=== PATIENT | female | born 1990 | race Asian ===

== ENCOUNTER → 2016-09-18 | Outpatient (CLI) | payer SELFPAY | LOC: COL.RAD 10:56 | DX: R31.9 Hematuria, unspecified (principal) | CPT/HCPCS: Q9967 ==

== ENCOUNTER 2019-04-02 21:29 | Inpatient (IN) | payer BC ==
[~2019-04-02] VITALS: Ht 157.5 cm; Wt 83.2 kg
--- NOTE | 2019-04-02 22:00 | NUR ---
2200 G1L0 40.3 WEEK GEST TO LR6 WITH C/O SROM AT 2100 TONIGHT WITH CL FLUID. EFM . IRREGULAR MILD CONTRACTIONS STATES BY PT. SVE /-2 WITH CLEAR FLUID NOTED AND POSITIVE AMNIOTRACE. ADM ASSESSMENT COMPLETED.
[2019-04-02] MEDS ORDERED: GLUCOPHAGE500 MG/TAB PO (22:08)
[2019-04-02] MEDS ORDERED: PREDNISONE 5MG5 MG PO (22:09)
[2019-04-02] MEDS ORDERED: PRENATA1 CTB PO (22:09)
[2019-04-02 22:11] VITALS: BP 134/89; PULSE 108; TEMP 97.6
[2019-04-02] MEDS ORDERED: VISTARIL 2525 MG/CAP PO (22:11)
[2019-04-02 22:30] VITALS: BP 120/70; PULSE 117
[2019-04-02 23:30] VITALS: BP 114/68; PULSE 95
--- NOTE | 2019-04-02 23:30 | NUR ---
2330 IV STARTED IN LEFT FOREARM 2235 PITOCIN INDUCTION STARTED PER PROTOCOL
[2019-04-02 23:45] VITALS: BP 128/89; PULSE 118
[2019-04-02 23:55] LABS: BASO % 0.3 % (0.0-2.0); EOS # 0.4 (0.0-0.7); EOS % 3.1 % (0-4.0); GRAN # 7.3 (1.4-6.5); GRAN % 64.9 % (42.2-75.2); HEMATOCRIT 37.6 % (37.0-47.0); HEMOGLOBIN 12.9 g/dl (12.5-16.0); LYMPH # 2.5 (1.2-3.4); LYMPH % 22.7 % (20.0-51.0); MEAN CELL VOLUME 82 fl (80.0-100.0); MEAN CORPUSCULAR HEMOGLOBIN 28 pg (27.0-31.0); MEAN CORPUSCULAR HGB CONC 34 g/dl (33.0-37.0); MONO # 0.9 (0.1-0.6); PLATELET COUNT 250 K/mm3 (130-400); RED BLOOD COUNT 4.58 M/mm3 (4.10-5.30); REDCELL DISTRIBUTION WIDTH-CV 13.7 % (11.5-14.5)
[2019-04-03] VITALS (68 sets, daily range): BP systolic 87–1221; BP diastolic 44–98; PULSE 86–138; TEMP 97.4–99.2
--- NOTE | 2019-04-03 02:00 | NUR ---
0200 REQUEST EPIDURAL. BOOT TURNER NOTIFIED
--- NOTE | 2019-04-03 02:35 | NUR ---
0235 SITTING ON SIDE OF BED FOR EPID PLACEMENT. FISH ROD MAKER HERE. SEE ANESTH RECORDS FOR MORE INFO. UNABLE TO TRACR FHT'S WHILE SITTING UP FOR PROCEDURE
--- NOTE | 2019-04-03 03:00 | NUR ---
0300 C/O OF A LOT OF BLADDER DISCOMFORT. MUÑIZ CATH INSERTED. PT UNCOMFORTABLE DURING PROCEDURE. VARIABLE DECEL NOTED DURING CATH PLACEMENT. B/P 96/46. 0303 EPHEDRINE 10MG IVP GIVEN.
--- NOTE | 2019-04-03 03:10 | NUR ---
0310 B/P 97/53 EPHEDRINE 10MG IVP GIVEN. 0315 B/P 123/58
--- NOTE | 2019-04-03 04:30 | NUR ---
0430 TURNED TO RIGHT SIDE FOR POSITION CHANGE. FHT'S 120 WITH GOOD ACCELS AND DECREASES FROM BASELINE TO 100-90'S OVER 7 MINUTE PERIOD. RETURNED TO LEFT SIDE.
--- NOTE | 2019-04-03 05:45 | NUR ---
0545 STARTING TO HAVE MORE FEELING IN RIGHT LEG AND SIDE. NUISANCE WILDLIFE TRAPPER USED. WEDGED TO THE RIGHT.
--- NOTE | 2019-04-03 11:00 | NUR ---
PATIENT NOT GEETING RELIEF FROM EPIDURAL AT THIS TIME, CHUCK FLOOD ON UNIT. REMIGIO PROVIDED THE PATIENT A BOLUS. PATIENT FEELING MORE RELIEF AFTER
--- NOTE | 2019-04-03 13:00 | NUR ---
DR PETERSON IN ROOM. DR PETERSON TALKED WITH PATIENT AT AT THIS TIME ABOUT SECTION. PATIENT OFF EFM AT 1305. TAKEN TO OR. OR GARB PROVIDED TO AND MOTHER OF PATIENT. PATIENT UNCOMFORTABLE. BRET WOODS IN ROOM.
--- NOTE | 2019-04-03 17:07 | NUR ---
OXYGEN REMOVED AT THIS TIME. PATIENT ON ROOM AIR DOING WELL
[2019-04-04 03:15] VITALS: BP 99/59; PULSE 103; TEMP 97.7
[2019-04-04 07:05] VITALS: BP 106/73; PULSE 113; TEMP 97.7
--- NOTE | 2019-04-04 10:00 | NUR ---
Initial visit; Parents thanked for looking in on them and offering congratulations for the of their son. Stock Patcher thanked them for choosing [facility].
[2019-04-04 16:20] VITALS: BP 115/66; PULSE 109; TEMP 97.7
[2019-04-04 21:44] VITALS: BP 105/99; PULSE 117; TEMP 98.3
--- NOTE | 2019-04-04 21:45 | NUR ---
WISHES TO WATCH EDUCATION VIDEOS WHEN RETURNS TOMORROW
[2019-04-05 06:59] VITALS: BP 112/68; PULSE 110; TEMP 98
[2019-04-05] MEDS ORDERED: IBU600 MG PO (09:17)
[2019-04-05] MEDS ORDERED: PERCOCET 325 MG1 TA2 PO (09:17)
[2019-04-05 16:00] VITALS: BP 130/73; PULSE 105; TEMP 97.3
[2019-04-06 06:45] VITALS: BP 110/75; PULSE 99; TEMP 97.7
== END 2019-04-06 11:15 | disposition home or self-care (01) | DRG 788 ==
LOC: LDRO 21:29 → LDR 22:06 → OB 04-03 11:44
PROVIDERS: ADMIT Obstetrics & Gynecology
PROC: 10D00Z1 Extraction of Products of Conception, Low, Open Approach (ICD-10-PCS; principal; 2019-04-03)
DX: O42.92 Full-term premature rupture of membranes, unspecified as to length of time between rupture and onset of labor (principal); O36.63X0 Maternal care for excessive fetal growth, third trimester, not applicable or unspecified; O62.0 Primary inadequate contractions; Z3A.40 40 weeks gestation of pregnancy; Z37.0 Single live birth
CPT/HCPCS: J0690; J1885; J2250; J2270; J2370; J2400; J2405; J2590; J2704; J2795; J3010; J7120